=== PATIENT | female | born 1940 | race Caucasian/White ===

== ENCOUNTER → 2016-04-02 | Outpatient (CLI) | payer MEDICARE ==
[~2016-04-02] MED LIST: APIX5TAB PO; LOSA25TA5 PO
== END | disposition home or self-care (01) ==
LOC: PETCFH 10:21
PROVIDERS: ATTEND Internal Medicine Hematology & Oncology
DX: C43.39 Malignant melanoma of other parts of face (principal)
CPT/HCPCS: 78815; A9552

== ENCOUNTER → 2016-05-20 | Outpatient (CLI) | payer MEDICARE | END | disposition home or self-care (01) | LOC: ROC 09:59 | PROVIDERS: ATTEND Radiology Radiation Oncology | DX: D33.3 Benign neoplasm of cranial nerves (principal); C43.39 Malignant melanoma of other parts of face; G93.89 Other specified disorders of brain; Z86.711 Personal history of pulmonary embolism | CPT/HCPCS: G0463 ==

== ENCOUNTER → 2016-07-30 | Outpatient (CLI) | payer MEDICARE ==
[~2016-07-30] MED LIST changes: +GADOBUTROL 10 MMOL/10 ML PFS ONE
== END | disposition home or self-care (01) ==
LOC: RAD 12:07
PROVIDERS: ATTEND Radiology Radiation Oncology
DX: D33.3 Benign neoplasm of cranial nerves (principal); R07.89 Other chest pain
CPT/HCPCS: 70553; A9585

== ENCOUNTER → 2016-08-12 | Outpatient (CLI) | payer MEDICARE ==
[~2016-08-12] MED LIST changes: -GADOBUTROL 10 MMOL/10 ML PFS ONE
== END | disposition home or self-care (01) ==
LOC: ROC 08:14
PROVIDERS: ATTEND Radiology Radiation Oncology
DX: Z08 Encounter for follow-up examination after completed treatment for malignant neoplasm (principal); D32.0 Benign neoplasm of cerebral meninges; Z79.01 Long term (current) use of anticoagulants; Z86.711 Personal history of pulmonary embolism; Z88.6 Allergy status to analgesic agent
CPT/HCPCS: G0463

== ENCOUNTER → 2016-09-29 | Outpatient (CLI) | payer MEDICARE | END | disposition home or self-care (01) | LOC: PETCFH 09:24 | PROVIDERS: ATTEND Radiology Radiation Oncology | DX: K57.30 Diverticulosis of large intestine without perforation or abscess without bleeding (principal); N28.1 Cyst of kidney, acquired; N28.9 Disorder of kidney and ureter, unspecified; D33.3 Benign neoplasm of cranial nerves; C43.9 Malignant melanoma of skin, unspecified; I10 Essential (primary) hypertension | CPT/HCPCS: 78816; A9552 ==

== ENCOUNTER → 2016-10-01 | Outpatient (CLI) | payer MEDICARE | END | disposition home or self-care (01) | LOC: RAD 11:20 | PROVIDERS: ATTEND Radiology Radiation Oncology | DX: D33.3 Benign neoplasm of cranial nerves (principal); I10 Essential (primary) hypertension; N28.9 Disorder of kidney and ureter, unspecified | CPT/HCPCS: 70553 ==

== ENCOUNTER → 2017-01-06 | Outpatient (CLI) | payer MEDICARE | END | disposition home or self-care (01) | LOC: ROC 07:28 | PROVIDERS: ATTEND Radiology Radiation Oncology | DX: C72.59 Malignant neoplasm of other cranial nerves (principal); Z86.711 Personal history of pulmonary embolism; Z79.01 Long term (current) use of anticoagulants | CPT/HCPCS: G0463 ==

== ENCOUNTER → 2017-01-21 | Outpatient (CLI) | payer MEDICARE | END | disposition home or self-care (01) | LOC: PETCFH 08:38 | PROVIDERS: ATTEND Radiology Radiation Oncology | DX: C43.39 Malignant melanoma of other parts of face (principal); I10 Essential (primary) hypertension | CPT/HCPCS: 78816; A9552 ==

== ENCOUNTER → 2017-05-31 | Outpatient (CLI) | payer MEDICARE | END | disposition home or self-care (01) | LOC: RAD 13:11 | PROVIDERS: ATTEND Radiology Radiation Oncology | DX: D43.3 Neoplasm of uncertain behavior of cranial nerves (principal) | CPT/HCPCS: 70553 ==

== ENCOUNTER → 2017-06-23 | Outpatient (CLI) | payer MEDICARE | END | disposition home or self-care (01) | LOC: ROC 07:49 | PROVIDERS: ATTEND Radiology Radiation Oncology | DX: D43.3 Neoplasm of uncertain behavior of cranial nerves (principal) | CPT/HCPCS: G0463 ==

== ENCOUNTER → 2017-09-29 | Outpatient (CLI) | payer MEDICARE | END | disposition home or self-care (01) | LOC: PETCFH 08:28 | PROVIDERS: ATTEND Internal Medicine Hematology & Oncology | DX: C43.39 Malignant melanoma of other parts of face (principal) | CPT/HCPCS: 78816; A9552 ==

== ENCOUNTER → 2017-10-14 | Outpatient (CLI) | payer MEDICARE ==
[~2017-10-14] MED LIST changes: +GADOBUTROL 10 MMOL/10 ML PFS ONE; -LOSA25TA5 PO; +LOSA25TA6 PO
== END | disposition home or self-care (01) ==
LOC: RAD 12:11
PROVIDERS: ATTEND Radiology Radiation Oncology
DX: G58.9 Mononeuropathy, unspecified (principal); D43.3 Neoplasm of uncertain behavior of cranial nerves; C43.9 Malignant melanoma of skin, unspecified; I26.99 Other pulmonary embolism without acute cor pulmonale; Z87.891 Personal history of nicotine dependence
CPT/HCPCS: 70553; A9585

== ENCOUNTER → 2017-11-03 | Outpatient (CLI) | payer MEDICARE ==
[~2017-11-03] MED LIST changes: -GADOBUTROL 10 MMOL/10 ML PFS ONE
== END | disposition home or self-care (01) ==
LOC: ROC 07:52
PROVIDERS: ATTEND Radiology Radiation Oncology
DX: D43.3 Neoplasm of uncertain behavior of cranial nerves (principal)
CPT/HCPCS: G0463

== ENCOUNTER → 2018-02-21 | Outpatient (CLI) | payer MEDICARE ==
[~2018-02-21] MED LIST changes: +GADOBUTROL 10 MMOL/10 ML PFS ONE; +LOSA25TA25 PO; -LOSA25TA6 PO
== END | disposition home or self-care (01) ==
LOC: RAD 12:22
PROVIDERS: ATTEND Radiology Radiation Oncology
DX: D43.3 Neoplasm of uncertain behavior of cranial nerves (principal); R90.82 White matter disease, unspecified; I10 Essential (primary) hypertension
CPT/HCPCS: 70553; A9585; J1642

== ENCOUNTER 2018-03-16 07:29 | Outpatient (CLI) | payer MEDICARE ==
[~2018-03-16 07:29] MED LIST changes: -GADOBUTROL 10 MMOL/10 ML PFS ONE
== END 2018-03-16 23:59 | disposition home or self-care (01) ==
LOC: ROC 07:29
PROVIDERS: ATTEND Radiology Radiation Oncology
DX: Z02.9 Encounter for administrative examinations, unspecified (principal)

== ENCOUNTER → 2018-04-12 | Outpatient (CLI) | payer MEDICARE | END | disposition home or self-care (01) | LOC: PETCFH 12:30 | PROVIDERS: ATTEND Internal Medicine Hematology & Oncology | DX: K57.10 Diverticulosis of small intestine without perforation or abscess without bleeding (principal); C43.9 Malignant melanoma of skin, unspecified | CPT/HCPCS: 78816; A9552 ==

== ENCOUNTER → 2018-04-13 | Outpatient (CLI) | payer MEDICARE | END | disposition home or self-care (01) | LOC: ROC 09:14 | PROVIDERS: ATTEND Radiology Radiation Oncology | DX: Z08 Encounter for follow-up examination after completed treatment for malignant neoplasm (principal); D43.3 Neoplasm of uncertain behavior of cranial nerves | CPT/HCPCS: G0463 ==

== ENCOUNTER → 2018-05-11 | Outpatient (CLI) | payer MEDICARE | END | disposition home or self-care (01) | LOC: ROC 07:53 | PROVIDERS: ATTEND Radiology Radiation Oncology | DX: D43.3 Neoplasm of uncertain behavior of cranial nerves (principal); M19.90 Unspecified osteoarthritis, unspecified site; Z79.899 Other long term (current) drug therapy; Z88.1 Allergy status to other antibiotic agents; Z88.8 Allergy status to other drugs, medicaments and biological substances | CPT/HCPCS: G0463 ==

== ENCOUNTER 2018-08-29 07:28 | Outpatient (CLI) | payer MEDICARE | END 2018-08-29 23:59 | disposition home or self-care (01) | LOC: INFUSION 07:28 | PROVIDERS: ATTEND Internal Medicine Hematology & Oncology | DX: Z02.9 Encounter for administrative examinations, unspecified (principal) ==

== ENCOUNTER 2018-08-29 12:43 | Outpatient (CLI) | payer MEDICARE ==
[2018-08-29] MEDS ORDERED: GADOBUTROL 15 MMOL/15 ML VIAL ONE (14:05)
== END 2018-08-29 23:59 | disposition home or self-care (01) ==
LOC: RAD 12:43
PROVIDERS: ATTEND Radiology Radiation Oncology
DX: C72.50 Malignant neoplasm of unspecified cranial nerve (principal); G93.89 Other specified disorders of brain
CPT/HCPCS: 70553; A9585

== ENCOUNTER → 2018-12-30 | Outpatient (CLI) | payer MEDICARE ==
[~2018-12-30] VITALS: Ht 162.6 cm; Wt 96.5 kg
[~2018-12-30] MED LIST changes: +CIPR500T87 PO; +METR500T PO; +POTA10TA17 PO
[2018-12-30 10:00] VITALS: BP 142/90
[2018-12-30 10:44] LABS: ALANINE AMINOTRANSFERASE 23 U/L (12-78); ALBUMIN 3.5 g/dL (3.4-5.0); ANION GAP 5 mmol/L (5-15); CALCIUM 8.5 mg/dL (8.5-10.1); CHLORIDE 113 mmol/L (98-107)
[2018-12-30 10:47] LABS: ALKALINE PHOSPHATASE 111 U/L (45-117); BILIRUBIN,TOTAL 0.8 mg/dL (0.2-1.0); CHOL/HDL RATIO 5.7; CHOLESTEROL, TOTAL 210 mg/dL (140-239); CREATININE 1.17 mg/dL (0.55-1.02); HDL CHOL % 18 % (28-40); HDL CHOLESTEROL (DIRECT) 37 mg/dL (40-60); LDL CHOLESTEROL,CALCULATED 140 mg/dL (54-169); LDL/HDL RATIO 3.8 (0.5-3.0); TOTAL PROTEIN 6.7 g/dL (6.4-8.2); TRIGLYCERIDES 164 mg/dL (50-200); VLDL CHOLESTEROL 33 mg/dL (0-25)
== END | disposition home or self-care (01) ==
LOC: INFUSION 12:00
PROVIDERS: ATTEND Internal Medicine Hematology & Oncology
DX: D33.3 Benign neoplasm of cranial nerves (principal); I12.9 Hypertensive chronic kidney disease with stage 1 through stage 4 chronic kidney disease, or unspecified chronic kidney disease; N18.3 Chronic kidney disease, stage 3 (moderate); E78.5 Hyperlipidemia, unspecified; Z85.828 Personal history of other malignant neoplasm of skin; Z79.01 Long term (current) use of anticoagulants; Z86.711 Personal history of pulmonary embolism; Z87.891 Personal history of nicotine dependence
CPT/HCPCS: 36415; 36591; 80053; 80061

== ENCOUNTER 2019-01-27 10:39 | Outpatient (CLI) | payer MEDICARE ==
[~2019-01-27] VITALS: Ht 160 cm; Wt 95.7 kg
[2019-01-27 11:40] VITALS: BP 132/67
== END 2019-01-27 23:59 | disposition home or self-care (01) ==
LOC: INFUSION 10:39
PROVIDERS: ATTEND Internal Medicine Hematology & Oncology
DX: Z45.2 Encounter for adjustment and management of vascular access device (principal); C43.9 Malignant melanoma of skin, unspecified; D33.3 Benign neoplasm of cranial nerves; I12.9 Hypertensive chronic kidney disease with stage 1 through stage 4 chronic kidney disease, or unspecified chronic kidney disease; N18.3 Chronic kidney disease, stage 3 (moderate); E78.5 Hyperlipidemia, unspecified; Z79.01 Long term (current) use of anticoagulants; Z87.891 Personal history of nicotine dependence; Z86.711 Personal history of pulmonary embolism
CPT/HCPCS: 96523

== ENCOUNTER 2019-02-21 10:12 | Outpatient (CLI) | payer MEDICARE ==
[~2019-02-21] VITALS: Ht 157.5 cm; Wt 100.9 kg
[2019-02-21] MEDS ORDERED: SODIUM CHLORIDE 0.9% 1,000ML IVBOLUS ONE (10:30)
[2019-02-21 10:53] LABS: BASOPHILS # (AUTO) 0.03 x10^3/uL (0-0.1); BASOPHILS % (AUTO) 1 % (0-1); EOSINOPHILS % (AUTO) 2 % (1-7); LYMPHOCYTES # (AUTO) 1.53 x10^3/uL (1-3.4); LYMPHOCYTES % (AUTO) 25 % (22-44); MD NO; MEAN CORPUSCULAR HEMOGLOBIN 31.8 pg (27.0-34.8); MEAN CORPUSCULAR HGB CONC 33.5 g/dL (32.4-35.8); MEAN PLATELET VOLUME 10.9 fL (7.4-10.4); MONOCYTES # (AUTO) 0.38 x10^3/uL (0.2-0.8); MONOCYTES % (AUTO) 6 % (2-9); NEUTROPHILS # (AUTO) 4.14 x10^3/uL (1.8-6.8); NEUTROPHILS % (AUTO) 67 % (42-75); PLATELET COUNT 188 x10^3/uL (130-400); RED BLOOD COUNT 4.53 x10^6/uL (3.82-5.3); RED CELL DISTRIBUTION WIDTH 13.7 % (9.6-15.2)
[2019-02-21 10:58] VITALS: BP 125/78
[2019-02-21 11:02] LABS: ALANINE AMINOTRANSFERASE 20 U/L (12-78); ALBUMIN 3.3 g/dL (3.4-5.0); ANION GAP 7 mmol/L (5-15); CALCIUM 8.3 mg/dL (8.5-10.1); CHLORIDE 114 mmol/L (98-107); CREATININE 1.34 mg/dL (0.55-1.02)
[2019-02-21 11:05] LABS: ALKALINE PHOSPHATASE 111 U/L (45-117); BILIRUBIN,TOTAL 0.7 mg/dL (0.2-1.0); TOTAL PROTEIN 6.4 g/dL (6.4-8.2)
== END 2019-02-21 23:59 | disposition home or self-care (01) ==
LOC: INFUSION 10:12
PROVIDERS: ATTEND Internal Medicine Hematology & Oncology
DX: D33.3 Benign neoplasm of cranial nerves (principal); I12.9 Hypertensive chronic kidney disease with stage 1 through stage 4 chronic kidney disease, or unspecified chronic kidney disease; N18.3 Chronic kidney disease, stage 3 (moderate); C43.9 Malignant melanoma of skin, unspecified; E78.5 Hyperlipidemia, unspecified; Z79.01 Long term (current) use of anticoagulants; Z87.891 Personal history of nicotine dependence; Z86.711 Personal history of pulmonary embolism
CPT/HCPCS: 36415; 80053; 83615; 85025; 96360; 96361; J7030

== ENCOUNTER 2019-02-21 13:22 | Outpatient (CLI) | payer MEDICARE ==
[2019-02-21] MEDS ORDERED: GADOTERATE 10 MMOL/20 ML SYR ONE (14:04)
[2019-05-05] MEDS ORDERED: CEPH-376 PO (10:10)
== END 2019-02-21 23:59 | disposition home or self-care (01) ==
LOC: RAD 13:22
PROVIDERS: ATTEND Radiology Radiation Oncology
DX: D43.3 Neoplasm of uncertain behavior of cranial nerves (principal); I67.82 Cerebral ischemia; I10 Essential (primary) hypertension
CPT/HCPCS: 70553; A9575; 36415; 80053; 83615; 85025; 96360; 96361; J7030

== ENCOUNTER 2019-03-01 08:58 | Outpatient (CLI) | payer MEDICARE | END 2019-03-01 23:59 | disposition home or self-care (01) | LOC: ROC 08:58 | PROVIDERS: ATTEND Radiology Radiation Oncology | DX: D43.3 Neoplasm of uncertain behavior of cranial nerves (principal) | CPT/HCPCS: G0463 ==

== ENCOUNTER 2019-03-02 12:03 | Outpatient (CLI) | payer MEDICARE ==
[~2019-03-02 12:03] MED LIST changes: +OMNIPAQUE 350 MG/ML, 100ML BOTTLE ONE
== END 2019-03-02 23:59 | disposition home or self-care (01) ==
LOC: CFH 12:03
PROVIDERS: ATTEND Internal Medicine Hematology & Oncology
DX: C43.9 Malignant melanoma of skin, unspecified (principal); R91.8 Other nonspecific abnormal finding of lung field; N28.1 Cyst of kidney, acquired; K57.30 Diverticulosis of large intestine without perforation or abscess without bleeding; I70.8 Atherosclerosis of other arteries; M43.8X5 Other specified deforming dorsopathies, thoracolumbar region
CPT/HCPCS: 71260; 74177; Q9967

== ENCOUNTER 2019-03-30 13:58 | Outpatient (CLI) | payer MEDICARE ==
[~2019-03-30] VITALS: Ht 157.5 cm; Wt 100.9 kg
[~2019-03-30 13:58] MED LIST changes: -OMNIPAQUE 350 MG/ML, 100ML BOTTLE ONE
[2019-03-30 14:25] LABS: BASOPHILS # (AUTO) 0.07 x10^3/uL (0-0.1); BASOPHILS % (AUTO) 1 % (0-1); EOSINOPHILS % (AUTO) 3 % (1-7); LYMPHOCYTES # (AUTO) 1.87 x10^3/uL (1-3.4); LYMPHOCYTES % (AUTO) 27 % (22-44); MD NO; MEAN CORPUSCULAR HEMOGLOBIN 32.5 pg (27.0-34.8); MEAN CORPUSCULAR HGB CONC 33.8 g/dL (32.4-35.8); MEAN PLATELET VOLUME 12.2 fL (7.4-10.4); MONOCYTES # (AUTO) 0.64 x10^3/uL (0.2-0.8); MONOCYTES % (AUTO) 9 % (2-9); NEUTROPHILS % (AUTO) 60 % (42-75); PLATELET COUNT 161 x10^3/uL (130-400); RED BLOOD COUNT 4.49 x10^6/uL (3.82-5.3); RED CELL DISTRIBUTION WIDTH 13.5 % (9.6-15.2)
[2019-03-30 14:26] LABS: MICROSCOPIC NOT IND
[2019-03-30 14:36] VITALS: BP 104/54
[2019-03-30 14:36] LABS: ALANINE AMINOTRANSFERASE 19 U/L (12-78); ALBUMIN 3.3 g/dL (3.4-5.0); ANION GAP 7 mmol/L (5-15); CALCIUM 8.3 mg/dL (8.5-10.1); CHLORIDE 112 mmol/L (98-107)
[2019-03-30 14:38] LABS: ALKALINE PHOSPHATASE 143 U/L (45-117); BILIRUBIN,TOTAL 0.5 mg/dL (0.2-1.0); TOTAL PROTEIN 6.7 g/dL (6.4-8.2)
== END 2019-03-30 23:59 | disposition home or self-care (01) ==
LOC: INFUSION 13:58
PROVIDERS: ATTEND Internal Medicine Hematology & Oncology
DX: C43.9 Malignant melanoma of skin, unspecified (principal); D43.3 Neoplasm of uncertain behavior of cranial nerves; D47.2 Monoclonal gammopathy; I12.9 Hypertensive chronic kidney disease with stage 1 through stage 4 chronic kidney disease, or unspecified chronic kidney disease; N18.3 Chronic kidney disease, stage 3 (moderate); E78.5 Hyperlipidemia, unspecified; Z87.891 Personal history of nicotine dependence; Z86.711 Personal history of pulmonary embolism; Z79.01 Long term (current) use of anticoagulants
CPT/HCPCS: 36415; 36591; 80053; 81003; 82436; 82570; 84133; 84156; 84300; 85025

== ENCOUNTER → 2019-05-05 | Outpatient (CLI) | payer MEDICARE ==
[~2019-05-05] MED LIST changes: +CEPH-376 PO
[2019-05-05 09:25] VITALS: BP 154/88
== END | disposition home or self-care (01) ==
LOC: INFUSION 06:18
PROVIDERS: ATTEND Internal Medicine Hematology & Oncology
DX: Z45.2 Encounter for adjustment and management of vascular access device (principal); D33.3 Benign neoplasm of cranial nerves; C43.9 Malignant melanoma of skin, unspecified; I12.9 Hypertensive chronic kidney disease with stage 1 through stage 4 chronic kidney disease, or unspecified chronic kidney disease; N18.3 Chronic kidney disease, stage 3 (moderate); Z87.891 Personal history of nicotine dependence; Z86.711 Personal history of pulmonary embolism; Z90.49 Acquired absence of other specified parts of digestive tract; Z79.01 Long term (current) use of anticoagulants
CPT/HCPCS: 96523

== ENCOUNTER → 2019-11-28 | Outpatient (CLI) | payer MEDICARE | END | disposition home or self-care (01) | LOC: PETCFH 12:48 | PROVIDERS: ATTEND Internal Medicine Hematology & Oncology | DX: C43.9 Malignant melanoma of skin, unspecified (principal); K57.30 Diverticulosis of large intestine without perforation or abscess without bleeding; K44.9 Diaphragmatic hernia without obstruction or gangrene; J98.4 Other disorders of lung; I77.810 Thoracic aortic ectasia; I70.0 Atherosclerosis of aorta; N94.89 Other specified conditions associated with female genital organs and menstrual cycle | CPT/HCPCS: 78816; A9552 ==

== ENCOUNTER → 2020-04-17 | Outpatient (CLI) | payer MEDICARE ==
[~2020-04-17] MED LIST changes: +CYAN10002 IM; +GADOTERATE 7.5 MMOL/15ML SYR ONE; +MAGN400T36 PO; +METO25TA35 PO; +MIRT15TA94 PO; +ONDA4TAB7 PO; +SODI325T PO
== END | disposition home or self-care (01) ==
LOC: RAD 11:22
PROVIDERS: ATTEND Radiology Radiation Oncology
DX: I67.82 Cerebral ischemia (principal); D43.3 Neoplasm of uncertain behavior of cranial nerves; I63.81 Other cerebral infarction due to occlusion or stenosis of small artery
CPT/HCPCS: 70553; A9575; J1642

== ENCOUNTER 2020-04-25 07:19 | Outpatient (CLI) | payer MEDICARE ==
[~2020-04-25 07:19] MED LIST changes: -GADOTERATE 7.5 MMOL/15ML SYR ONE
== END 2020-04-25 23:59 | disposition home or self-care (01) ==
LOC: ROC 07:19
PROVIDERS: ATTEND Radiology Radiation Oncology
DX: D43.3 Neoplasm of uncertain behavior of cranial nerves (principal)
CPT/HCPCS: G0463

== ENCOUNTER → 2020-06-21 | Outpatient (CLI) | payer MEDICARE | END | disposition home or self-care (01) | LOC: CVU 14:59 | PROVIDERS: ATTEND Internal Medicine Cardiovascular Disease | DX: Q21.1 Atrial septal defect (principal) | CPT/HCPCS: 93308 ==

== ENCOUNTER → 2020-09-17 | Outpatient (CLI) | payer MEDICARE ==
[~2020-09-17] MED LIST changes: +GADOTERATE 7.5 MMOL/15ML SYR ONE
== END | disposition home or self-care (01) ==
LOC: RAD 13:10
PROVIDERS: ATTEND Radiology Radiation Oncology
DX: I63.81 Other cerebral infarction due to occlusion or stenosis of small artery (principal); I67.82 Cerebral ischemia; D43.3 Neoplasm of uncertain behavior of cranial nerves; R90.89 Other abnormal findings on diagnostic imaging of central nervous system
CPT/HCPCS: 70553; A9575

== ENCOUNTER → 2020-09-19 | Outpatient (CLI) | payer MEDICARE ==
[~2020-09-19] MED LIST changes: -GADOTERATE 7.5 MMOL/15ML SYR ONE
== END | disposition home or self-care (01) ==
LOC: ROC 10:13
PROVIDERS: ATTEND Radiology Radiation Oncology
DX: Z08 Encounter for follow-up examination after completed treatment for malignant neoplasm (principal); D43.3 Neoplasm of uncertain behavior of cranial nerves
CPT/HCPCS: G0463